=== PATIENT | male | born 1980 | race African-American/Black ===

== ENCOUNTER → 2016-12-23 | Outpatient (CLI) | payer BC ==
[~2016-12-23] MED LIST: IOHEXOL 240 MG/ML 50ML VIAL. ONE
[2016-12-23] MEDS: IOHEXOL 300 MG/ML 75 ML VIAL. IV ONE (15:54)
[2016-12-23] MEDS: IOHEXOL 240 MG/ML 50ML VIAL. PO ONE (15:55)
--- NOTE | 2016-12-23 16:17 | RAD ---
EXAM: Abdomen CT with intravenous contrast. HISTORY: Pain, fatigue and nausea. TECHNIQUE: Computed tomographic images of the abdomen were obtained following the administration of 75 cc Omnipaque 300 intravenous contrast. One or more of the following individualized dose reduction techniques were utilized for this examination: 1. Automated exposure control. 2. Adjustment of the mA and/or kV according to patient size. 3. Use of iterative reconstruction technique. COMPARISON: None. FINDINGS: Evaluation of the lower thorax is unremarkable. The liver is upper normal in size for body habitus. No focal hepatic lesion is seen. The gallbladder, pancreas, spleen, and adrenal glands are unremarkable. There is a 1 cm fluid density lesion within the lower pole of the right kidney, consistent with a cyst. There is also a 3 mm hypodense lesion within the lower pole of the left kidney likely due to a cortical cyst. There is a 2 mm suspected nonobstructing left renal stone. There are findings consistent with partial colonic resection, with enterocolic anastomosis within the right mid abdomen and sigmoid anastomosis within the left lower quadrant. There is a distended air and contrast-filled loop of small bowel proximal to the anastomosis. There is no associated small bowel wall thickening to suggest edema and the setting of obstruction. No pathologically enlarged lymph node is seen. There is a lucent lesion with peripheral sclerosis within the left iliac bone, possibly due to a bone infarct. There is also a bone island within the left iliac bone. There is a small bone infarct or bone island within the right iliac bone. There are disc bulges at the lower lumbar levels. There is a superimposed broad-based posterior central to left lateral recess disc protrusion at L4-L5 and posterior central to left paracentral disc protrusion at L5-S1. There is associated foraminal and central canal stenosis. IMPRESSION: 1. Distended loop of small bowel within the midabdomen proximal to an ileocolic anastomosis. There is no luminal narrowing at the level of the anastomosis or bowel wall thickening to suggest obstruction. Small bowel follow-through may be useful for characterization if clinically indicated. 2. 2 mm nonobstructing left renal stone and small bilateral renal cysts. 3. Moderate colonic stool. 4. Degenerative changes at the lower lumbar levels, described above.
== END | disposition home or self-care (01) ==
LOC: CT 14:57
PROVIDERS: ATTEND Family Medicine
DX: R10.9 Unspecified abdominal pain (principal)
CPT/HCPCS: 74160; Q9966; Q9967

== ENCOUNTER → 2017-01-06 | Outpatient (CLI) | payer BC ==
[~2017-01-06] MED LIST changes: +BARIUM SULFATE 60% 355 ML SUSP PO ONE; -IOHEXOL 240 MG/ML 50ML VIAL. ONE
--- NOTE | 2017-01-06 16:11 | RAD ---
Small bowel follow-through study 01/06/2017 Clinical history: Right lower quadrant abdominal pain for years. Technique: A small bowel follow-through study was performed under radiographic and intermittent fluoroscopic control. The total fluoroscopic time for this study was 0.3 minutes. 1 digital spot radiograph of the terminal ileum was obtained. Findings: Comparison is made to the patient's CT scan of the abdomen dated 12/23/2016. An AP digital radiograph of the abdomen was obtained as a master yacht radiograph. This demonstrated surgical clips within the right lower quadrant of the abdomen and within the left pelvis. The abdominal bowel gas pattern is nonobstructive. The osseous structures are grossly intact. Calcifications are seen within the pelvis consistent with phleboliths. The mucosal pattern of the duodenum, jejunum, and ileum are within normal limits. The cecum has been resected. An anastomosis is seen between the ileum and ascending colon. This is patent. No small bowel wall thickening is seen. No filling defect is noted. No extrinsic mass effect upon the small bowel is noted. The small bowel transit time is within normal limits. Impression: Postsurgical changes are seen as outlined above. Otherwise negative study.
== END | disposition home or self-care (01) ==
LOC: RAD 12:15
PROVIDERS: ATTEND Family Medicine
DX: K46.9 Unspecified abdominal hernia without obstruction or gangrene (principal); R10.31 Right lower quadrant pain
CPT/HCPCS: 74250

== ENCOUNTER → 2017-01-31 | Outpatient (CLI) | payer BC ==
[~2017-01-31] VITALS: Ht 175.3 cm; Wt 61.2 kg
[~2017-01-31] MED LIST changes: -BARIUM SULFATE 60% 355 ML SUSP PO ONE; +CARI350T PO; +PROP20TA PO; +SINCALIDE 1.22 MCG in IV NORMAL SALINE 50ML 30 ML IV ONE
--- NOTE | 2017-01-31 11:25 | RAD ---
Indication nausea. Grayscale images were obtained targeted to the right upper quadrant. Note is made of a CT examination of the abdomen 12/23/2016. The pancreas appears normal. The inferior vena cava appears normal. There is cholelithiasis. At least one gallstone is identified. No wall thickening or pericholecystic fluid is seen. The common bile duct diameter of approximately 3 mm is normal. The visualized liver and right kidney appear normal. IMPRESSION: Cholelithiasis
--- NOTE | 2017-01-31 12:56 | RAD ---
Indication nausea vomiting. Abdominal pain. Hepatobiliary scan was performed. 5.5 mCi of technetium labeled Choletec was administered. 1.2 mcg of CCK was diluted in saline and administered over several minutes. Following the CCK administration a gallbladder ejection fraction calculation was made. There is normal uptake of the radiopharmaceutical in the liver. Activity is seen early in the gallbladder. Following the Kinevac administration the estimated gallbladder ejection fraction is 75%. IMPRESSION: Normal study
== END | disposition home or self-care (01) ==
LOC: US 10:04
PROVIDERS: ATTEND Internal Medicine Gastroenterology
DX: K80.20 Calculus of gallbladder without cholecystitis without obstruction (principal); I10 Essential (primary) hypertension; J45.909 Unspecified asthma, uncomplicated
CPT/HCPCS: 76705; 78226; 96374; 96375; A9537; J2805